=== PATIENT | female | born 1945 | race Caucasian/White ===

== ENCOUNTER → 2016-06-22 | Outpatient (CLI) | payer OTHER ==
[~2016-06-22] MED LIST: ALPH200C2 PO; ASPI325T4 PO; ASPI81TA28 PO; BIOTPOW17 PO; CHOL100010 PO; CIPR1TAB10 PO; CURCUMIN PO; DOCU-94 PO; GABA-113 PO; GLUCTAB PO; MELO15TA3 PO; MISC1CAP69 PO; MISCCAP3 PO; MULT-506 PO; POTATAB PO; PRLSR20 PO; PYRI100T4 PO; TRAM-10 PO
--- NOTE | 2016-06-22 14:36 | DIAGNOSTIC IMAGING REPORT ---
KUB CLINICAL HISTORY: Nephrolithiasis. Right flank pain. FINDINGS: An AP abdominal radiograph is compared to study dated 02/01/2015 and correlated with abdominal CT dated 02/07/2014. There is a nonobstructed abdominal bowel gas pattern. There is no radiographic evidence of nephrolithiasis. Small phleboliths in the pelvis are unchanged. The skeletal structures are osteopenic. There is moderate lumbosacral spondylosis. 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 Advanced arthritic change is seen in the left hip. IMPRESSION: 1. There is no radiographic evidence of nephrolithiasis. Renal calculi seen on prior CT scans were not apparent by x-ray. 2. Nonobstructed abdominal bowel gas pattern. Electronically signed by: Rod Curtis M.D. 06/22/2016 2:34 PM
== END | disposition home or self-care (01) ==
LOC: C.RADBC 14:13
DX: G58.9 Mononeuropathy, unspecified (principal)

== ENCOUNTER → 2016-10-07 | Outpatient (CLI) | payer OTHER ==
[~2016-10-07] MED LIST changes: -ASPI325T4 PO; -GLUCTAB PO; -MELO15TA3 PO; -POTATAB PO
== END | disposition home or self-care (01) ==
LOC: C.LABBC 10:06
PROVIDERS: ATTEND Nurse Practitioner Family
DX: N39.46 Mixed incontinence (principal); N39.3 Stress incontinence (female) (male)

== ENCOUNTER 2016-10-13 06:59 | Day surgery (SDC) | payer OTHER ==
[2016-08-27 14:50] VITALS: BMI 35.0
--- NOTE | 2016-08-27 15:26 | PAT Medication Instructions ---
Service Date Aug 27, 2016. Current Home Medication List Alpha-Lipoic Acid (Thioctic Ac (Alpha Lipoic Acid), 200 MG PO QAM Aspirin (Aspirin Ec), 81 MG PO QPM Cholecalciferol (Vitamin D), 2,000 INTER.UNIT PO QAM Gabapentin (Neurontin), 300 MG PO BID Misc Natural Products (Pumpkin Seed Oil), 1 CAP PO QAM Misc Natural Products (Joint Health), 1 TAB PO QAM Multivitamin (Multivitamin), 1 TAB PO QAM Omeprazole (Prilosec), 20 MG PO QAM Tramadol (Ultram), 50 MG PO QAM PRN for Pain [Biotin], 1 TAB PO QPM [Curcumin], 1 TAB PO QAM Medication Instructions For Your Scheduled Surgery Aspirin (Aspirin Ec), 81 MG PO QPM (hold 7 days prior to surgery per surgeon instructions) - Hold the following medications 10 days prior to surgery: Biotin 1 TAB PO QPM Curcumin 1 TAB PO QAM Misc Natural Products (Joint Health), 1 TAB PO QAM Misc Natural Products (Pumpkin Seed Oil), 1 CAP PO QAM Alpha-Lipoic Acid (Thioctic Ac (Alpha Lipoic Acid), 200 MG PO QAM - Hold the following medications the morning of surgery: Multivitamin (Multivitamin), 1 TAB PO QAM Cholecalciferol (Vitamin D), 2,000 INTER.UNIT PO QAM - Take the following medications the morning of surgery with a sip of water: Tramadol (Ultram), 50 MG PO QAM PRN for Pain (can take up to four hours prior to surgery if needed) Omeprazole (Prilosec), 20 MG PO QAM Gabapentin (Neurontin), 300 MG PO BID - Take the following medications as scheduled the night before surgery: Tramadol (Ultram), 50 MG PO QAM PRN for Pain Gabapentin (Neurontin), 300 MG PO BID If you have any questions please call us at [phone] or [phone] ( [place]) or [phone]
--- NOTE | 2016-08-27 15:51 | DIAGNOSTIC IMAGING REPORT ---
CHEST 2 VIEWS ROUTINE CLINICAL HISTORY: pat preoperative evaluation COMPARISON STUDY: 12/11/2014 FINDINGS: The bones soft tissues and hemidiaphragms are normal. The cardiomediastinal silhouette is normal. The lungs are clear. The pulmonary vasculature is normal. IMPRESSION: Negative chest. Electronically signed by: Alvarado Tsang M.D. 08/27/2016 3:49 PM Dictated Date/Time: 08/27/2016 3:49 PM
[2016-08-27 16:29] LABS: BASO % 0.2 %; BASO ABS # 0.03 K/uL (0-0.2); COMPLETE YES; EOS % 1.8 %; HEMATOCRIT 41.7 % (37-47); IG% 0.4 %; LYMPH % 21.6 %; LYMPH ABS # 2.62 K/uL (1.2-3.4); MEAN CELL VOLUME 82.7 fL (80-100); MEAN CORPUSCULAR HEMOGLOBIN 29.4 pg (25-34); MEAN CORPUSCULAR HGB CONC 35.5 g/dl (32-36); MEAN PLATELET VOLUME 10.8 fL (7.4-10.4); MONO % 8.9 %; NEUT % 67.1 %; PLATELET COUNT 220 K/uL (130-400); RED BLOOD COUNT 5.04 M/uL (4.2-5.4); WHITE BLOOD COUNT 12.12 K/uL (4.8-10.8)
[2016-08-27 16:30] LABS: URINE APPEARANCE CLEAR (CLEAR); URINE BILIRUBIN NEG (NEG); URINE COLOR YELLOW; URINE NITRITE NEG (NEG); URINE PH 5.5 (4.5-7.5); URINE SPECIFIC GRAVITY 1.016 (1.000-1.030); UROBILINOGEN NEG (NEG)
[2016-08-27 16:35] LABS: MANUAL MICROSCOPIC REQUIRED? NO; REVIEW REQ? NO
[2016-08-27 16:50] LABS: BUN/CREATININE RATIO 22.6 (10-20); CALCIUM 9.1 mg/dl (8.5-10.1); CREATININE 1.1 mg/dl (0.60-1.20)
[2016-09-28 10:04] VITALS: BMI 35.0
[~2016-10-13] VITALS: Ht 152.4 cm; Wt 81.7 kg
[~2016-10-13 06:59] MED LIST changes: -CIPR1TAB10 PO; +CIPROFLOXACIN / D5W 400 MG IV SCH; -DOCU-94 PO; +LACTATED RINGER'S 1000ML 1,000 ML IV SCH; -PYRI100T4 PO
[2016-10-13] MEDS ORDERED: PYRI100T4 PO (07:28)
[2016-10-13 07:32] VITALS: Ht 152.4 cm; Wt 81.7 kg
[2016-10-13 07:37] VITALS: BP 164/93; PULSE 82; TEMP 36.7; O2SAT 96
[2016-10-13] MEDS ORDERED: LIDOCAINE HCL 2% 2 ML VIAL (20MG/ML) ONE (08:05)
[2016-10-13] MEDS ORDERED: PROPOFOL IV EMULSION 10 MG/ML 20 ML VIAL IV ONE (08:05)
[2016-10-13] MEDS ORDERED: MIDAZOLAM HCL 1 MG/ML 2ML VIAL ONE (08:05)
[2016-10-13] MEDS ORDERED: ONDANSETRON INJ 2 MG/ML 2 ML VIAL ONE (08:05)
[2016-10-13] MEDS ORDERED: FENTANYL CITRATE INJ 50 MCG/1 ML 2 ML VIAL ONE ×2 (08:05→10:13)
[2016-10-13] MEDS ORDERED: DEXAMETHASONE SOD INJ 4 MG/ML VIAL ONE (08:05)
--- NOTE | 2016-10-13 08:14 | History & Physical Bridge Note ---
H&P Re-Evaluation Bridge Note: I have examined the patient, reviewed the History & Physical and in the interval since the performance of the History & Physical I have noted the following changes of clinical significance: No changes noted
[2016-10-13] MEDS ORDERED: LIDOCAINE/EPINEPHRINE 1% 20 ML VIAL ONE (08:35)
[2016-10-13] MEDS ORDERED: PREMARIN VAG CRM 14 APPLN/30 GM TUBE ONE (08:35)
[2016-10-13] MEDS ORDERED: BACITRACIN 50000 UNIT VIAL ONE (08:36)
[2016-10-13] MEDS ORDERED: TRAMADOL/ACETAMINOPHEN 37.5/325MG TAB PO PRN (09:15)
[2016-10-13] MEDS ORDERED: CIPR1TAB10 PO (09:20)
[2016-10-13] MEDS ORDERED: DOCU-94 PO (09:20)
[2016-10-13] MEDS ORDERED: TRAM-10 PO (09:20)
--- NOTE | 2016-10-13 09:25 | Discharge Instructions ---
Discharge Instructions Date of Service Oct 13, 2016. Admission Reason for Admission: Urinary Incontinence Discharge Discharge Diagnosis / Problem: Stress urinary incontinence Discharge Goals Goal(s): Decrease discomfort, Therapeutic intervention Activity Recommendations Activity Limitations: as noted below Lifting Limitations: no more than 10 pounds (x 6 weeks) Exercise/Sports Limitations: rest today, until after follow-up appointment ( Light activity x 2 weeks) May Resume Sexual Activity: after follow-up appointment (when cleared by Dr. German) Shower/Bathe: tomorrow Driving or Machine Use: resume 3 days after discharge (Do not drive while taking narcotics. ) . Instructions / Follow-Up Instructions / Follow-Up 1. You have been prescribed the antibiotic Ciprofloxacin. Finish all as directed. 2. Follow-up as scheduled. Please call our office at [phone] if you need to reschedule for any reason. Discharge Diet Recommended Diet: Regular Diet Pending Studies Studies pending at discharge: no Medical Emergencies . Who to Call and When: Medical Emergencies: If at any time you feel your situation is an emergency, please call 911 immediately. . Non-Emergent Contact Non-Emergency issues call your: Urologist Call Non-Emergent contact if: temperature is above 101.5, your pain is not controlled, your pain is worsening, your pain is unusual for you, your pain is concerning you, you have any medication questions . . "Provider Documentation" section prepared by Aleksandra Deng. . VTE Core Measure Inpt VTE Proph given/why not?: SCD's [place] Drug Monitoring Program Search Results: patient reviewed within database Drug Monitoring Findings: Pt taking tramadol daily. No other issues found.
--- NOTE | 2016-10-13 09:45 | [facility] Post Operative Brief Note ---
Immediate Operative Summary Operative Date Oct 13, 2016. Pre-Operative Diagnosis Stress/Urge Incontinence Post-Operative Diagnosis Stress/Urge Incontinence Procedure(s) Performed Transvaginal Mid-urethral Sling - [employer] Advantage Fit - Ref# [id number]; Lot # [id number] Surgeon Dr. German Adjunct Philosophy Faculty Surgeon(s) none Estimated Blood Loss 25 cc Findings Stress urinary incontinence; rectocele Specimens none per surgeon Drains Ordoñez - to be removed in PACU Anesthesia Gen Complication(s) None Disposition Recovery Room / PACU (stable)
[2016-10-13] MEDS ORDERED: FENTANYL CITRATE INJ 50 MCG/1 ML 2 ML VIAL IV PRN (10:00)
[2016-10-13] MEDS ORDERED: ATROPINE SULFATE 0.1 MG/ML 5ML SYR IV PRN (10:00)
[2016-10-13] MEDS ORDERED: LABETALOL HCL IV 5 MG/ML 20ML IV PRN (10:00)
[2016-10-13] MEDS ORDERED: NALOXONE HCL 0.4 MG/1 ML VIAL/CARP IV PRN (10:00)
[2016-10-13] MEDS ORDERED: ONDANSETRON INJ 2 MG/ML 2 ML VIAL IV PRN (10:00)
[2016-10-13] MEDS ORDERED: EpHEDrine SULFATE INJ 50 MG/ML AMP IV PRN (10:00)
[2016-10-13] MEDS ORDERED: PROMETHAZINE HCL INJ 12.5 MG in SODIUM CHLORIDE 0.9% 50ML 50 ML IV PRN (10:00)
[2016-10-13] MEDS ORDERED: LABETALOL HCL IV 5 MG/ML 20ML IV ONE (10:04)
--- NOTE | 2016-10-13 10:24 | Anesthesiology Progress Note ---
Anesthesia Post Op Note Date & Time Oct 13, 2016 at 10:24 Vital Signs Pain Intensity: 2 Vital Signs Past 12 Hours Date Time Temp Pulse Resp B/P Pulse Ox O2 Delivery O2 Flow Rate FiO2 10/13/16 10:16 66 16 147/80 95 Room Air 10/13/16 10:06 70 16 153/83 93 Room Air 10/13/16 09:56 90 16 184/68 100 Mask 10 10/13/16 09:47 36.8 93 16 161/94 100 Mask 10 10/13/16 07:37 36.7 82 18 164/93 96 Room Air Notes Mental Status: alert / awake / arousable, participated in evaluation Pt Amnestic to Procedure: Yes Nausea / Vomiting: adequately controlled Pain: adequately controlled Airway Patency, RR, SpO2: stable & adequate BP & HR: stable & adequate Hydration State: stable & adequate Anesthetic Complications: no major complications apparent
[2016-10-13 10:40] VITALS: BP 123/73; PULSE 70; TEMP 36.6; O2SAT 95
[2016-10-13 11:10] VITALS: BP 135/73; PULSE 68; TEMP 36.5; O2SAT 96
[2016-10-13 11:40] VITALS: BP 140/82; PULSE 71; TEMP 36.6; O2SAT 95
--- NOTE | 2016-10-13 12:49 | OPERATIVE REPORT ---
DATE OF OPERATION: 10/13/2016 PREOPERATIVE DIAGNOSIS: Stress urinary incontinence. POSTOPERATIVE DIAGNOSIS: Stress urinary incontinence. PROCEDURE PERFORMED: Mid urethral sling Advantage Fit from [employer], reference number [id number], lot #[id number]. SURGEON: Dr. Kun German. ANESTHESIA: General. ESTIMATED BLOOD LOSS: 25 mL. URINE OUTPUT: Not recorded. SPECIMENS: None. COMPLICATIONS: None. DESCRIPTION OF THE PROCEDURE: Lynn Alvarado was identified in the preoperative holding area. Appropriate informed consents reviewed and completed and the patient was transported to the operating suite. Upon arrival, she received appropriate preoperative antibiotics in the form of Cipro. General anesthesia was achieved and the patient was placed in dorsal lithotomy position where she was sterilely prepped and draped in standard fashion. I began the case by placing a Ordoñez catheter. I was able to easily palpate the balloon at the bladder neck. An Allis clamp was placed adjacent to the balloon as well as a second Allis clamp adjacent to the urethral meatus. A segment of vaginal tissue between the two was infiltrated with 1% lidocaine with epinephrine. I hydrodissected laterally on each side to begin the creation of a tunnel through which my sling will ultimately pass. After anesthetizing this area I looked in the suprapubic region just above the symphysis and I made 2 cagle approximately 1 finger lateral to the symphysis on either side and 2 fingerbreadths above the symphysis. These will be for my discharge point of my trocar as it passed through. I made small skin incisions in this area of approximately 3 mm each. This was through the dermal layer only. I then turned my attention back to the bladder component. I further created my tunnels utilizing Metzenbaum scissors and with care to avoid encroachment upon the urethra itself and with care to avoid buttonholing into the vaginal mucosa. After reaching laterally to the bone, I was able to conclude the dissection on the left and followed this by performing the same dissection on the right. Before passing the trocar I emptied the bladder again to confirm complete empty vesicle. I then utilized the [employer] trocar with the sling preattached to it to first pass on the patient's right side, guiding this through my vaginal incision with exiting of my previously made suprapubic incision after wrapping behind this pubic arch. I left this sling in place, withdrew the trocar and attached it to the opposite wing. I was able to pass this then through the patient's left hand side from my vaginal incision to my suprapubic incision. Before proceeding further, I withdrew the Ordoñez catheter noting that there was no evidence of any blood within the small amount of urine that was left in the bladder. I passed a 70 degree cystoscope and fully inspected the bladder. There was no evidence of any intravesical intrusion or passage of the trocar through the bladder itself. After confirming appropriate position and a healthy appearing urethra, I withdrew the scope. I then prepositioned the sling in the approximate location where I would like it to be permanently placed before removing the plastic sleeving. After removing the sleeves I fine tuned it again to achieve just a slighter tighter fit with the mesh just lying against the urethra, but not compressing it. At that time, I left the bladder full and I applied gentle suprapubic pressure and saw no continued leak as was present in the beginning of the case. I replaced the Ordoñez catheter. I trimmed the mesh from the suprapubic areas below the skin and closed those incisions with Dermabond and I closed the vaginal incision with a running 2-0 Vicryl stitch. I then placed a vaginal packing, which will be removed in the recovery room. Ordoñez catheter was left in place and will also be removed in the recovery room. At the conclusion of the case, the patient was extubated and taken to the PACU in stable condition. She tolerated this procedure well. I attest to the content of the Intraoperative Record and any orders documented therein. Any exceptio ns are noted below.
== END 2016-10-13 12:05 | disposition home or self-care (01) ==
LOC: C.ACU 06:59
PROVIDERS: ATTEND Urology
DX: N39.3 Stress incontinence (female) (male) (principal); N39.46 Mixed incontinence; E66.9 Obesity, unspecified; E11.9 Type 2 diabetes mellitus without complications; Z88.5 Allergy status to narcotic agent; Z88.0 Allergy status to penicillin; Z98.890 Other specified postprocedural states; Z83.3 Family history of diabetes mellitus; Z79.82 Long term (current) use of aspirin; Z68.35 Body mass index [BMI] 35.0-35.9, adult; Z96.641 Presence of right artificial hip joint; Z79.899 Other long term (current) drug therapy

== ENCOUNTER → 2017-04-16 | Outpatient (CLI) | payer OTHER ==
[~2017-04-16] MED LIST changes: -BIOTPOW17 PO; -CIPROFLOXACIN / D5W 400 MG IV SCH; -LACTATED RINGER'S 1000ML 1,000 ML IV SCH; -MISCCAP3 PO; -PRLSR20 PO; +PYRI100T4 PO
--- NOTE | 2017-04-16 18:28 | DIAGNOSTIC IMAGING REPORT ---
L-SPINE MIN 4 VIEWS ROUTINE HISTORY: Pain neuropathy COMPARISON: 06/06/2015 FINDINGS: There is no fracture. Grade 1 retrolisthesis L2 on L3. Grade 1 anterolisthesis of L4 on L5 and L5 on S1. These findings are unchanged from the prior exam. Degenerative disc change throughout most prominent at L2-L3. These findings are unchanged. IMPRESSION: Degenerative change. No change compared to the prior exam. The above report was generated using voice recognition software. It may contain grammatical, syntax or spelling errors. Electronically signed by: Alvarado Tsang M.D. 04/16/2017 6:27 PM Dictated Date/Time: 04/16/2017 6:26 PM
== END | disposition home or self-care (01) ==
LOC: C.RAD 17:51
PROVIDERS: ATTEND Nurse Practitioner
DX: R07.89 Other chest pain (principal); R53.83 Other fatigue; G58.9 Mononeuropathy, unspecified; E66.9 Obesity, unspecified; M54.9 Dorsalgia, unspecified

== ENCOUNTER → 2017-04-17 | Outpatient (CLI) | payer OTHER ==
[2017-04-17 10:44] LABS: BASO % 0.3 %; BASO ABS # 0.03 K/uL (0-0.2); COMPLETE YES; EOS % 2.5 %; IG% 0.5 %; LYMPH % 23.6 %; LYMPH ABS # 2.37 K/uL (1.2-3.4); MEAN CELL VOLUME 83.3 fL (80-100); MEAN CORPUSCULAR HEMOGLOBIN 29.2 pg (25-34); MEAN PLATELET VOLUME 10.5 fL (7.4-10.4); MONO % 6.7 %; NEUT % 66.4 %; PLATELET COUNT 198 K/uL (130-400); RED BLOOD COUNT 5.04 M/uL (4.2-5.4); WHITE BLOOD COUNT 10.04 K/uL (4.8-10.8)
[2017-04-17 10:57] LABS: ALT/SGPT 39 U/L (12-78); AST/SGOT 18 U/L (15-37); BLOOD UREA NITROGEN 18 mg/dl (7-18); BUN/CREATININE RATIO 17.6 (10-20); CALCIUM 9.1 mg/dl (8.5-10.1); CARBON DIOXIDE 29 mmol/L (21-32); CHLORIDE 104 mmol/L (98-107); CHOLESTEROL 219 mg/dl (0-200); CREATININE 1.01 mg/dl (0.60-1.20); GLUCOSE 90 mg/dl (70-99); SODIUM 139 mmol/L (136-145); TRIGLYCERIDES 152 mg/dl (0-150); URIC ACID 5.9 mg/dl (2.6-7.2); VERY LOW DENSITY LIPOPROT CALC 30 mg/dl
[2017-04-17 11:06] LABS: ALB/GLOB RATIO 1.2 (0.9-2); ALKALINE PHOSPHATASE 108 U/L (45-117); CHOLESTEROL/HDL RATIO 4.4; HDL CHOLESTEROL 50 mg/dl; LDL CHOLESTEROL CALCULATED 139 mg/dl; URINE APPEARANCE CLOUDY (CLEAR); URINE BILIRUBIN NEG (NEG); URINE COLOR YELLOW; URINE EPITHELIAL CELL AUTO >30 /lpf (0-5); URINE NITRITE NEG (NEG); URINE PH 6.5 (4.5-7.5); URINE SPECIFIC GRAVITY 1.021 (1.000-1.030); UROBILINOGEN NEG (NEG); ZZUR CULT IF INDIC CLEAN CATCH NO
[2017-04-17 11:07] LABS: MANUAL MICROSCOPIC REQUIRED? NO; REVIEW REQ? NO
== END | disposition home or self-care (01) ==
LOC: C.LAB 07:01
PROVIDERS: ATTEND Nurse Practitioner
DX: R07.89 Other chest pain (principal); R53.83 Other fatigue; G58.9 Mononeuropathy, unspecified; E66.9 Obesity, unspecified

== ENCOUNTER → 2017-08-12 | Outpatient (CLI) | payer OTHER ==
--- NOTE | 2017-08-12 15:59 | DIAGNOSTIC IMAGING REPORT ---
ULTRASOUND KIDNEYS AND BLADDER CLINICAL HISTORY: Nephrolithiasis. COMPARISON STUDY: Abdominal CT dated 02/07/2014. TECHNIQUE: Real-time, grayscale, and color flow sonography of the kidneys and bladder is performed. Images are reviewed in the transverse and longitudinal planes. FINDINGS: Kidneys: The kidneys demonstrate cortical atrophy. The right kidney measures 10.7 x 4.4 x 4.4 cm and the left kidney measures 10.7 x 4.7 x 4.6 cm. There is no hydronephrosis. A 1.9 cm shadowing calculus is seen in the upper pole of the right kidney. A 2.1 cm cyst is present in the left lower pole. No shadowing calculi are identified in the left kidney. There is no sonographic evidence of contour deforming renal mass lesion. No perinephric fluid is identified. Bladder: The bladder is normal in appearance. Bilateral ureteral jets were seen. There is a 3.2 cm cystic focus in the left adnexa, likely related to the left ovary. IMPRESSION: 1. The kidneys demonstrate cortical atrophy and are without hydronephrosis. 2. There is a large nonobstructing calculus present in the right kidney. 3. The bladder was normal as imaged. 4. A 3.2 cm cystic structure is seen in the left adnexa, likely related the left ovary. This was likely also seen by CT on 02/07/2014 and appears to have increased in size from that time. Follow-up with a pelvic ultrasound is recommended for further assessment. Electronically signed by: Rod Curtis M.D. 08/12/2017 3:58 PM Dictated Date/Time: 08/12/2017 3:55 PM
== END | disposition home or self-care (01) ==
LOC: C.ULTRBC 15:20
PROVIDERS: ATTEND Physician Assistant
DX: N20.2 Calculus of kidney with calculus of ureter (principal); R93.5 Abnormal findings on diagnostic imaging of other abdominal regions, including retroperitoneum

== ENCOUNTER → 2017-11-09 | Outpatient (CLI) | payer OTHER ==
[~2017-11-09] MED LIST changes: -CHOL100010 PO; +CITA40TA4 PO; -CURCUMIN PO; +CYAN100073 PO; +MELO7.5T5 PO; -MULT-506 PO; +RANI300T2 PO; -TRAM-10 PO
[2017-11-09 19:36] LABS: BASO % 0.2 %; BASO ABS # 0.02 K/uL (0-0.2); EOS % 1.4 %; EOS ABS # 0.15 K/uL (0-0.5); HEMATOCRIT 39.9 % (37-47); HEMOGLOBIN 14.1 g/dL (12.0-16.0); IG# 0.04 K/uL (0.00-0.02); LYMPH ABS # 2.63 K/uL (1.2-3.4); MEAN CELL VOLUME 83.6 fL (80-100); MEAN CORPUSCULAR HEMOGLOBIN 29.6 pg (25-34); MEAN CORPUSCULAR HGB CONC 35.3 g/dl (32-36); MEAN PLATELET VOLUME 10.1 fL (7.4-10.4); MONO % 7.4 %; MONO ABS # 0.78 K/uL (0.11-0.59); NEUT % 65.6 %; NEUT ABS # 6.91 K/uL (1.4-6.5); PLATELET COUNT 209 K/uL (130-400); RED CELL DISTRIBUTION WIDTH CV 15.1 % (11.5-14.5); RED CELL DISTRIBUTION WIDTH SD 46.2 fL (36.4-46.3); WHITE BLOOD COUNT 10.53 K/uL (4.8-10.8)
[2017-11-09 19:56] LABS: BLOOD UREA NITROGEN 29 mg/dl (7-18); CALCIUM 8.8 mg/dl (8.5-10.1); CARBON DIOXIDE 28 mmol/L (21-32); CREATININE 0.96 mg/dl (0.60-1.20); GLUCOSE 81 mg/dl (70-99); POTASSIUM 4.1 mmol/L (3.5-5.1); SODIUM 138 mmol/L (136-145)
== END | disposition home or self-care (01) ==
LOC: C.LAB 18:42
PROVIDERS: ATTEND Urology
DX: N20.0 Calculus of kidney (principal)